=== PATIENT | male | born 1940 | race Caucasian/White ===

== ENCOUNTER 2016-12-02 12:49 | Emergency (ER) | payer MEDICARE ==
[2016-12-02 14:15] VITALS: BP 135/66
--- NOTE | 2016-12-02 14:18 | ER Document Report ---
ED Respiratory Problem - General Chief Complaint: Cough Stated Complaint: COUGH Time Seen by Provider: 12/02/16 14:08 Notes: The patient is a 76-year-old male, past medical history daily smoker, CAD status post stents, presents with rhinorrhea, chest congestion and a dry cough over the past week. He denies fevers, chest pain, leg swelling, nausea, vomiting, headache or difficulty catching his breath TRAVEL OUTSIDE OF THE [place] IN LAST 30 DAYS: No - Related Data Allergies/Adverse Reactions: No Known Allergies Allergy (Unverified 12/02/16 13:03) Past Medical History - General Information source: Patient - Social History Smoking Status: Current Every Day Smoker Chew tobacco use (# tins/day): No Drug Abuse: None Family History: Reviewed & Not Pertinent Patient has suicidal ideation: No Patient has homicidal ideation: No - Past Medical History Cardiac Medical History: Reports: Hx Heart Attack Renal/ Medical History: Denies: Hx Peritoneal Dialysis Past Surgical History: Reports: Hx Cardiac Catheterization, Hx Cardiac Surgery - stents x7 Review of Systems - Review of Systems Notes: REVIEW OF SYSTEMS: CONSTITUTIONAL: -fevers, -chills EENT: -eye pain, -difficulty swallowing, -nasal congestion CARDIOVASCULAR:-chest pain, -syncope. RESPIRATORY: +cough, +SOB GASTROINTESTINAL: -abdominal pain, - nausea, -vomiting, -diarrhea GENITOURINARY: -dysuria, -hematuria MUSCULOSKELETAL: -back pain, -neck pain SKIN: -rash or skin lesions. HEMATOLOGIC: -easy bruising or bleeding. LYMPHATIC: -swollen, enlarged glands. NEUROLOGICAL: -altered mental status or loss of consciousness, -headache, - neurologic symptoms PSYCHIATRIC: -anxiety, -depression. ALL OTHER SYSTEMS REVIEWED AND NEGATIVE. Physical Exam - Vital signs Vitals: Temp Pulse Resp BP Pulse Ox 97.8 F 65 18 132/67 H 93 12/02/16 13:01 12/02/16 13:01 12/02/16 13:01 12/02/16 13:01 12/02/16 13:01 - Notes Notes: PHYSICAL EXAMINATION: GENERAL: Well-appearing, well-nourished and in no acute distress. HEAD: Atraumatic, normocephalic. EYES: Pupils equal round and reactive to light, extraocular movements intact, sclera anicteric, conjunctiva are normal. ENT: nares patent, oropharynx clear without exudates. Moist mucous membranes. NECK: Normal range of motion, supple without lymphadenopathy LUNGS: Respiratory distress. Mild end expiratory wheezes. HEART: Regular rate and rhythm without murmurs ABDOMEN: Soft, nontender, normoactive bowel sounds. No guarding, no rebound. No masses appreciated. EXTREMITIES: Normal range of motion, no pitting or edema. No cyanosis. NEUROLOGICAL: Cranial nerves grossly intact. Normal speech, normal gait. Normal sensory and motor exams. PSYCH: Normal mood, normal affect. SKIN: Warm, Dry, normal turgor, no rashes or lesions noted. Course - Re-evaluation Re-evalutation: Patient in no respiratory distress. He has faint end expiratory wheezes on exam. Chest x-ray does not show any focal consolidation and he does not have a fever. Will treat with steroids and albuterol. Also provided smoking cessation counseling. Will have him follow-up with his primary care physician and given strict return precautions - Vital Signs Vital signs: Temp Pulse Resp BP Pulse Ox 97.8 F 65 18 132/67 H 93 12/02/16 13:01 12/02/16 13:01 12/02/16 13:01 12/02/16 13:01 12/02/16 13:01 - Diagnostic Test Radiology reviewed: Image reviewed, Reports reviewed Radiology results interpreted by me: CXR: NAD Discharge - Discharge Clinical Impression: Bronchitis Condition: Good Disposition: HOME, SELF-CARE Additional Instructions: BRONCHITIS WITH BRONCHOSPASM (WHEEZING): You have bronchitis with bronchospasm (wheezing). Sometimes people develop wheezing with a chest cold. This occurs either because of an underlying tendency toward asthma or because the virus itself irritates the bronchial tubes. This irritation causes cough, shortness of breath, and wheezing. Emergency treatment of bronchospasm may include adrenaline shots or bronchodilator aerosol. You may feel lightheaded and have a rapid pulse for an hour or two. Rest and get plenty of fluids. At home, we'll treat you with a bronchodilator inhaler. Corticosteroids may be required for some patients. Until you recover, avoid chemical fumes, dusts, pollens, and exercising in very cold or dry air. If you smoke, stop now! Most cases of bronchitis get better without antibiotics. We prescribe antibiotics when we believe bacteria are damaging your airways, or if there's high risk the bronchitis will worsen into pneumonia. Increase your fluid intake. A cool mist humidifier may make your lungs more comfortable. An expectorant (cough medicine that loosens phlegm) can help. Repeated episodes of bronchitis and bronchospasm may result in lung damage -- for example, chronic bronchitis, recurrent pneumonias, or emphysema. If you develop a fever, increased wheezing, chest pain, or severe shortness of breath, you should contact the doctor immediately. DECONGESTANT MEDICATION: A decongestant medicine has been prescribed. Often this medicine is combined in the same tablet with an antihistamine or expectorant. This type of medicine is helpful in treating a bad cold or sinus condition, as well as in treatment of the nasal congestion of hay fever. It is not of much benefit for lung infections. Decongestant medicines are related to stimulants. They can cause an increase in blood pressure and heart rate. Persons with heart disease and high blood pressure should not take decongestants without discussing this with the physician. If you develop palpitations, chest pain, headache, or tremors, stop the medicine and consult your physician. COUGH-SUPPRESSANT & EXPECTORANT MEDICATION: You are to use a cough medication as needed for relief of symptoms. This medicine is a combination of an expectorant (to make the mucous thinner and more easily "coughed up") and a cough suppressant (to reduce the frequency of coughing). The cough-suppressant medicine is related to narcotics. You may experience mild nausea and sleepiness. Some patients who are very sensitive to narcotics may have stomach pain from this medicine. Taking the medicine with food reduces these side effects. Do not drive or work with machinery until you know how this medicine affects you. The expectorant should have no side effects. Iodine-containing expectorants (such as organidin) should not be taken by persons with active thyroid disease unless approved by your doctor. Call the doctor if you develop shortness of breath, hives, rash, itching, lightheadedness, or severe nausea and vomiting. INHALED BRONCHODILATORS: You have received a treatment of and/or prescription for an inhaled bronchodilator -- a medication which stimulates the airways in the lung to dilate. This improves the flow of air in asthma, bronchitis, and emphysema. These medicines have some similarity to adrenaline, and can cause similar side effects: shakiness, racing heart, and a sense of nervousness. These side effects decrease with time. Contact your doctor if these side effects are severe. Do not over-use the medicine. Too-frequent use of the inhaler may make it ineffective. Call your doctor if the inhaler is not controlling your symptoms at the prescribed doses. STEROID MEDICATION: You have been given an injection of or oral medicine of the cortisone/ steroid class. This medication is used to control inflammation or allergy. Chris t is usually only given for a short period of time, until the acute process subsides. There are usually no side effects from short-term use of cortisone-like medications. Some persons feel an increased sense of well-being and are not sleepy at bedtime. Long-term use of cortisone medications is best avoided, unless required for a severe condition. If your condition does not remit, or relapses after the course of corticosteroid medication, you should consult your physician. USE OF ACETAMINOPHEN (Tylenol): Acetaminophen may be taken for pain relief or fever control. It's much safer than aspirin, offering a wider range of "safe" dosages. It is safe during . Some brand names are Tylenol, Panadol, Datril, Anacin 3, Tempra, and Liquiprin. Acetaminophen can be repeated every four hours. The following are maximum recommended dosages: >89 pounds or adults 650 mg to 900 mg Acetaminophen can be repeated every four hours. Maximum dose not to exceed 4000 mg a day. SMOKING: If you smoke, you should stop smoking. The tar and chemicals in cigarette smoke are harmful. Smoking has been shown to cause: emphysema chronic bronchitis lung cancer mouth and throat cancer stomach and pancreas cancer premature aging defects In addition, smoking increases ear and lung infections in children of smokers. FOLLOW-UP CARE: If you have been referred to a physician for follow-up care, call the physician s office for an appointment as you were instructed or within the next two days. If you experience worsening or a significant change in your symptoms, notify the physician immediately or return to the Emergency Department at any time for re-evaluation. Prescriptions: Albuterol Sulfate [Proair HFA Inhalation Aerosol 8.5 gm MDI] 2 puff IH Q4H PRN # 1 mdi PRN Reason: Prednisone [Deltasone 20 mg Tablet] 3 tab PO DAILY 5 Days Forms: Smoking Cessation Education
== END 2016-12-02 14:24 | disposition home or self-care (01) ==
LOC: ER 12:49
DX: J40 Bronchitis, not specified as acute or chronic (principal); I25.10 Atherosclerotic heart disease of native coronary artery without angina pectoris; Z95.5 Presence of coronary angioplasty implant and graft; F17.200 Nicotine dependence, unspecified, uncomplicated
CPT/HCPCS: 71020; 99283

== ENCOUNTER 2016-12-24 21:05 | Emergency (ER) | payer MEDICARE ==
[~2016-12-24 21:05] MED LIST: TENECTEPLASE INJ 50 MG KIT IV ONE
[2016-12-24] MEDS ORDERED: TENECTEPLASE INJ 50 MG KIT IV ONE (21:27)
[2016-12-24] MEDS ORDERED: NITROGLYCERIN/D5W 250 ML IV PRN (21:27)
[2016-12-24] MEDS ORDERED: HEPARIN SOD (PORCINE) 1,000 UNIT/ML 10 ML VIAL IV ONE (21:28)
--- NOTE | 2016-12-24 21:28 | ER Document Report ---
ED Cardiac - General Mode of Arrival: Ambulatory Information source: Patient TRAVEL OUTSIDE OF THE [place] IN LAST 30 DAYS: No - HPI Patient complains to provider of: Chest pain. denies: Shortness of breath Was the onset of pain: Sudden Chest pain location: Substernal Chest pain precipitating factors: Physical Exertion Cardiac risk factors: Smoker, + Family history, Hx HI - x7 Associated symptoms: Other - see notes above <DAYSI ZULETA - Last Filed: 12/24/16 22:39> <YEYO HAMILTON - Last Filed: 12/25/16 03:52> - General Chief Complaint: Chest Pain Stated Complaint: CHEST PAIN Time Seen by Provider: 12/24/16 21:16 Notes: 76-year-old male with history of MIs (x7) and cardiac stents (x7) presents to the ED complaining of sharp substernal chest pain that started at 1230 this afternoon. 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 Patient took 4 aspirin after arriving home from work. Patient's last episode of chest pain was 4 weeks ago, but did not have it evaluated because it subsided. 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 Patient denies shortness of breath, diaphoresis, nausea, vomiting, or abdominal pain. Patient denies history of blood clots. Patient reports that he was taking extensive amounts of medication until his most recent HI, but states that he is taking no medications now. (DAYSI ZULETA) - Related Data Allergies/Adverse Reactions: No Known Allergies Allergy (Unverified 12/02/16 13:03) Past Medical History - General Information source: Patient - Social History Smoking Status: Current Every Day Smoker Family History: Reviewed & Not Pertinent - Past Medical History Cardiac Medical History: Reports: Hx Heart Attack - x7 Renal/ Medical History: Denies: Hx Peritoneal Dialysis Past Surgical History: Reports: Hx Cardiac Catheterization, Hx Cardiac Surgery - stents x7 <DAYSI ZULETA - Last Filed: 12/24/16 22:39> Review of Systems - Review of Systems Constitutional: No symptoms reported. denies: Diaphoresis EENT: No symptoms reported Cardiovascular: See HPI, Chest pain - substernal Respiratory: No symptoms reported. denies: Short of breath Gastrointestinal: No symptoms reported. denies: Abdominal pain, Nausea, Vomiting Genitourinary: No symptoms reported Male Genitourinary: No symptoms reported Musculoskeletal: No symptoms reported Skin: No symptoms reported Hematologic/Lymphatic: No symptoms reported Neurological/Psychological: No symptoms reported -: Yes All other systems reviewed and negative <DAYSI ZULETA - Last Filed: 12/24/16 22:39> Physical Exam - General General appearance: Alert In distress: None - HEENT Head: Normocephalic, Atraumatic Eyes: Normal Extraocular movements intact: Yes Pupils: PERRL - Respiratory Respiratory status: No respiratory distress Breath sounds: Normal - Cardiovascular Rhythm: Regular Heart sounds: Normal auscultation - Abdominal Inspection: Normal Distension: No distension Tenderness: Nontender - Back Back: Normal - Extremities General upper extremity: Normal inspection, Normal ROM General lower extremity: Normal inspection, Normal ROM - Neurological Neuro grossly intact: Yes Cognition: Normal Orientation: AAOx4 [place] Coma Scale Eye Opening: Spontaneous Nery Coma Scale Verbal: Oriented [place] Coma Scale Motor: Obeys Commands Nery Coma Scale Total: 15 Speech: Normal - Psychological Associated symptoms: Normal affect, Normal mood - Skin Skin Temperature: Warm Skin Moisture: Dry Skin Color: Normal <DAYSI ZULETA - Last Filed: 12/24/16 22:39> Course - Laboratory Result Diagrams: 12/24/16 21:25 - Consults [facility] Time consulted: 21:20 <DAYSI ZULETA - Last Filed: 12/24/16 22:39> - Laboratory Result Diagrams: 12/24/16 21:25 <YEYO HAMILTON - Last Filed: 12/25/16 03:52> - Re-evaluation Re-evalutation: 12/24/16 21:34 Patient presents emergency department chief complaint of chest pain. He is a 76 -year-old male patient that since he had onset of substernal chest pain at 1230 1:00 this afternoon while at work. 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 He denies shortness of breath or diaphoresis. He has a history of 7 heart attacks in the past which he said 7 stents. He has been here for a year and a half and has not had any cardiac care and says he moved here from [place] where all his care was. He continues to smoke does not drink does not have a history of according to him of high blood pressure or diabetes. Does have a family history of heart disease says he supposed to be taking 17 different meds but he does not take any of them. States that he took 4 baby aspirin prior to arrival. Acute EKG is read as acute inferior HI without any previous EKG to compare to. [facility] who accepted the transfer under [facility]. Patient was started on a nitro drip had already received aspirin is given heparin and thrombolytics. ETA of 17 minutes per helicopter. Patient had no contraindications to heparin. 12/24/16 21:37 X-ray performed at the bedside prior to radiology read interpreted by myself revealed narrow mediastinum with no pneumothorax. (YEYO HAMILTON) - Vital Signs Vital signs: Temp Pulse Resp BP Pulse Ox 20 160/87 H 99 12/24/16 21:51 12/24/16 21:51 12/24/16 21:51 - Laboratory Laboratory results interpreted by me: 12/24/16 12/24/16 21:25 21:25 WBC 15.0 H RDW 14.2 H Seg Neutrophils % 85.0 H Lymphocytes % 8.0 L Absolute Neutrophils 12.8 H APTT 22.0 L - EKG Interpretation by Me Additional EKG results interpreted by me: 12/24/16 21:36 EKG interpreted by myself to reveal sinus rhythm at 81 bpm with acute inferior HI and reciprocal anterior changes (YEYO HAMILTON) - Consults [facility] Reason for consultation: 12/24/16 21:20 Patient was discussed with the [facility] STEMI line and accepts the patient for transfer. (DAYSI ZULETA) Critical Care Note - Critical Care Note Total time excluding time spent on procedures (mins): 30 <YEYO HAMILTON - Last Filed: 12/25/16 03:52> Discharge <DAYSI ZULETA - Last Filed: 12/24/16 22:39> <YEYO HAMILTON - Last Filed: 12/25/16 03:52> - Discharge Clinical Impression: Acute ST elevation myocardial infarction (STEMI) of inferior wall Condition: Stable Disposition: [facility] Scribe Attestation: 12/24/16 21:31 I personally performed the services described in the documentation reviewed the documentation recorded by my scribe in my presence and it accurately and completely records my words and actions (YEYO HAMILTON) Scribe Documentation - Scribe Written by [place]:: Brody Marti, 12/24/2016 2311 acting as scribe for :: Zoran <DAYSI ZULETA - Last Filed: 12/24/16 22:39>
[2016-12-24 21:46] LABS: ABSOLUTE BASOPHILS # (AUTO) 0.1 10^3/uL (0.0-0.2); ABSOLUTE LYMPHOCYTES (AUTO) 1.2 10^3/uL (0.5-4.7); ABSOLUTE MONOCYTES (AUTO) 0.9 10^3/uL (0.1-1.4); ABSOLUTE NEUT (AUTO) 12.8 10^3/uL (1.7-8.2); BASOPHILS % (AUTO) 0.9 % (0-2); EOSINOPHILS % (AUTO) 0.2 % (0-6); HEMOGLOBIN 15.1 g/dL (13.5-17.0); HGB HCT DIFFERENCE -0.7; MEAN CORPUSCULAR HGB CONC 32.8 g/dL (32.0-36.0); MEAN CORPUSCULAR VOLUME 95 fl (80-97); MONOCYTES % (AUTO) 5.9 % (3-13); RED BLOOD COUNT 4.86 10^6/uL (4.35-5.55); RED CELL DISTRIBUTION WIDTH 14.2 % (11.5-14.0)
[2016-12-24 21:53] VITALS: BP 160/87
--- NOTE | 2016-12-24 21:53 | RADIOLOGY REPORT (SQ) ---
EXAM DESCRIPTION: CHEST SINGLE VIEW COMPLETED DATE/TIME: 12/24/2016 9:41 pm REASON FOR STUDY: mi chest pain COMPARISON: 12/02/2016 EXAM PARAMETERS: NUMBER OF VIEWS: One view. TECHNIQUE: Single frontal radiographic view of the chest acquired. RADIATION DOSE: NA LIMITATIONS: None. FINDINGS: LUNGS AND PLEURA: No acute opacities, masses or pneumothorax. No pleural effusion. MEDIASTINUM AND HILAR STRUCTURES: Stable. HEART AND VASCULAR STRUCTURES: Heart normal in size. Normal vasculature. BONES: No acute findings. HARDWARE: None in the chest. OTHER: No other significant finding. IMPRESSION: NO ACUTE RADIOGRAPHIC FINDING IN THE CHEST. TECHNICAL DOCUMENTATION: JOB ID: [id number]
[2016-12-24 21:57] LABS: PROTHROMBIN TIME 13.5 SEC (11.4-15.4)
--- NOTE | 2016-12-25 00:19 | EKG REPORT ---
SEVERITY:- ABNORMAL ECG - SINUS RHYTHM PROBABLE LEFT ATRIAL ABNORMALITY PROBABLE INFERIOR INFARCT, OLD : Confirmed by: Marybeth Emerson 25-Dec-2016 00:18:48
== END 2016-12-24 22:07 | disposition short-term general hospital (02) ==
LOC: ER 21:05
DX: I21.19 ST elevation (STEMI) myocardial infarction involving other coronary artery of inferior wall (principal); R07.89 Other chest pain; T50.906A Underdosing of unspecified drugs, medicaments and biological substances, initial encounter; Z91.14 Patient's other noncompliance with medication regimen; Z98.61 Coronary angioplasty status; I25.2 Old myocardial infarction; F17.200 Nicotine dependence, unspecified, uncomplicated; Z82.49 Family history of ischemic heart disease and other diseases of the circulatory system
CPT/HCPCS: 93005; 99291; 36415; 85025; 85610; 85730; 71010; 93010; J3101; J1644; J3490